=== PATIENT | male | born 1995 | race Caucasian/White ===

== ENCOUNTER 2021-08-03 16:17 | Emergency (ER) | payer OTHER ==
[~2021-08-03] VITALS: Ht 175.3 cm; Wt 90.7 kg
[2021-08-03] MEDS ORDERED: IV NORMAL SALINE 1000 ML BAG IV ONE ×2 (16:30)
[2021-08-03 16:53] LABS: HEMATOCRIT 41.3 % (36.7-47.1); MEAN CORPUSCULAR VOLUME 86.3 fL (73.0-96.2); PLATELET COUNT (AUTO) 207 K/uL (152-348)
[2021-08-03 17:06] LABS: CREATININE 1.3 mg/dL (0.6-1.3); POTASSIUM 3.7 mmol/L (3.5-5.1)
[2021-08-03 17:16] LABS: BILIRUBIN,DIRECT 0.1 mg/dL (0.0-0.2); BILIRUBIN,TOTAL 0.3 mg/dL (0.2-1.0); TOTAL PROTEIN, SERUM 7.5 g/dL (6.4-8.2)
--- NOTE | 2021-08-03 18:00 | NUR ---
Patient discharged to home in stable condition. Written and verbal after care instructions given. Patient verbalizes understanding of instructions. Stressed follow up or return to ER for worsening s/s.PT SAYS FEELS BETTER, NO SIGN OF RESP DISTRESS. PT READY TO BE D/VASU
[2021-08-03 18:13] VITALS: BP 134/77
== END 2021-08-03 18:00 | disposition home or self-care (01) ==
LOC: ER 16:30
DX: T67.5XXA Heat exhaustion, unspecified, initial encounter (principal); X00.8XXA Other exposure to uncontrolled fire in building or structure, initial encounter; Y93.89 Activity, other specified; Y92.89 Other specified places as the place of occurrence of the external cause; Y99.0 Civilian activity done for income or pay; R00.0 Tachycardia, unspecified
CPT/HCPCS: 36415; 71045; 85025; 93005; A4663; J7030